=== PATIENT | female | born 2000 | race Caucasian/White ===

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

== ENCOUNTER 2023-04-19 10:54 | Outpatient (CLI) | payer OTHER, SELFPAY ==
--- NOTE | ~2023-04-19 | US_ITS ---
EXAMINATION: US soft tissue groin RT DATE: 04/19/2023 11:19 INDICATION: Generalized enlarged lymph nodes. Right groin pain. TECHNIQUE: Multiple ultrasound grayscale and color Doppler images of the right inguinal region were o btained. COMPARISON: None. FINDINGS: There are normal lymph nodes in right inguinal region. IMPRESSION: 1. No abnormal right inguinal mass or lymphadenopathy. Reviewed, dictated and finalized at location A. [employer] OF AC[employer]ATION
== END 2023-04-19 10:55 ==
PROVIDERS: PCP Family Medicine; Visit Provider Family Medicine
DX: R59.1 Generalized enlarged lymph nodes (principal)
CPT/HCPCS: 76882